=== PATIENT | female | born 1945 | race Caucasian/White ===

== ENCOUNTER 2019-07-06 18:01 | Emergency (ER) | payer OTHER, MEDICAID ==
[2019-07-06] MEDS ORDERED: NORMAL SALINE 1000 ML 1,000 ML IV ONE ×2 (18:25→20:51)
--- NOTE | 2019-07-06 18:30 | ER Document Report ---
ED Medical Screen (RME) - General Chief Complaint: High Blood Sugar Stated Complaint: HIGH BLOOD SUGAR Time Seen by Provider: 07/06/19 18:23 Primary Care Provider: FRANCISCO HUGHES MD [Primary Care Provider] - Follow up as needed Mode of Arrival: Ambulatory Information source: Patient Notes: 73-year-old female presented to ED for complaint of elevated blood sugar. She states that her blood sugars been over 400 most of the day today. She states she has not had any nausea and vomiting. She is a diabetic Hepatitis C, cirrhosis, and high blood pressure. She states she also uses Januvia for her diabetes but she is out of the second medications. She states she has not been to her doctor or to the emergency room in about a year. She states that she is taking 5 Metformin today because they are not working. She is not taking any of her other medications because she is out of them. 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 Cholecystectomy. I have greeted and performed a rapid initial assessment of this patient. A comprehensive ED assessment and evaluation of the patient, analysis of test results and completion of medical decision making process will be conducted by an additional ED providers. TRAVEL OUTSIDE OF THE [place] IN LAST 30 DAYS: No - Related Data Allergies/Adverse Reactions: albuterol [Albuterol] Allergy (Severe, Verified 09/26/15 08:22) Anaphylaxis albuterol sulfate [From Combivent] Allergy (Severe, Verified 09/26/15 08:22) Anaphylaxis budesonide [From Symbicort] Allergy (Severe, Verified 09/26/15 08:22) Anaphylaxis formoterol fumarate [From Symbicort] Allergy (Severe, Verified 09/26/15 08:22) Anaphylaxis ipratropium bromide [From Combivent] Allergy (Severe, Verified 09/26/15 08:22) Anaphylaxis milk [Milk] Allergy (Severe, Verified 08/26/15 10:02) sinuses Past Medical History - General Information source: Patient - Social History Cigarette use (# per day): No Frequency of alcohol use: None Drug Abuse: None Lives with: Family Family history: Reviewed & Not Pertinent - Past Medical History Cardiac Medical History: Reports: None Pulmonary Medical History: Reports: Hx Bronchitis - hx of, Hx COPD - no inhalers-allergic Neurological Medical History: Reports: None Endocrine Medical History: Reports: Hx Diabetes Mellitus Type 2 Renal/ Medical History: Reports: Other - Crystallized right kidney Malignancy Medical History: Reports: None GI Medical History: Reports: Hx Cirrhosis, Hx Gastroesophageal Reflux Disease, Hx Hepatitis - c, Hx Liver Failure - cirrhosis,viral hep c, Other - Incisional hernia from a horse Musculoskeltal Medical History: Reports Hx Arthritis, Reports Hx Musculoskeletal Deformity, Reports Hx Musculoskeletal Trauma Skin Medical History: Reports None Psychiatric Medical History: Reports: None Traumatic Medical History: Reports: Hx Fractures - pelvis x 2 Infectious Medical History: Reports: Hx Hepatitis - c Past Surgical History: Reports: Hx Abdominal Surgery - POLYPS, Hx Appendectomy, Hx Section - x 2, Hx Cholecystectomy, Hx Herniorrhaphy, Hx Kidney (Renal Surgery) - NEPHRECTOMY right, Hx Orthopedic Surgery - BROKEN PELVIS, Hx Tonsillectomy. Denies: Hx Bowel Surgery, Hx Colostomy, Hx Coronary Artery Bypass Graft, Hx Gastric Bypass Surgery, Hx Hysterectomy, Hx Mastectomy, Hx Pacemaker, Hx Tubal Ligation - Immunizations Hx Diphtheria, Pertussis, Tetanus Vaccination: - Unknown Physical Exam - Vital signs Vitals: Temp Pulse BP Pulse Ox 97.4 F 84 155/71 H 99 07/06/19 18:04 07/06/19 18:04 07/06/19 18:04 07/06/19 18:04 Course - Vital Signs Vital signs: Temp Pulse Resp BP Pulse Ox 97.4 F 84 155/71 H 99 07/06/19 18:04 07/06/19 18:04 07/06/19 18:04 07/06/19 18:04 Doctor's Discharge - Discharge Referrals: FRANCISCO HUGHES MD [Primary Care Provider] - Follow up as needed
[2019-07-06 19:09] LABS: VENOUS BLOOD BASE EXCESS 0.5 mmol/L; VENOUS BLOOD HCO3 26.1 mmol/L (20-32); VENOUS BLOOD PCO2 45.6 mmHg (35-63); VENOUS BLOOD PH 7.38 (7.30-7.42)
[2019-07-06 19:11] LABS: ABSOLUTE EOSINOPHILS # (AUTO) 0.1 10^3/uL (0.0-0.6); ABSOLUTE LYMPHOCYTES (AUTO) 0.6 10^3/uL (0.5-4.7); ABSOLUTE MONOCYTES (AUTO) 0.2 10^3/uL (0.1-1.4); ABSOLUTE NEUT (AUTO) 2.1 10^3/uL (1.7-8.2); BASOPHILS % (AUTO) 0.4 % (0-2); EOSINOPHILS % (AUTO) 2.3 % (0-6); HEMATOCRIT 40.1 % (36.0-47.0); HEMOGLOBIN 13.3 g/dL (12.0-15.5); LYMPHOCYTES % (AUTO) 20.3 % (13-45); MEAN CORPUSCULAR HEMOGLOBIN 28.8 pg (27.0-33.4); MEAN CORPUSCULAR VOLUME 87 fl (80-97); MONOCYTES % (AUTO) 7.1 % (3-13); RED CELL DISTRIBUTION WIDTH 18.7 % (11.5-14.0); SEGMENTED NEUTROPHILS % (AUTO) 69.9 % (42-78); TOTAL CELLS COUNTED % (AUTO) 100 %
[2019-07-06 19:28] LABS: ALBUMIN 3.6 g/dL (3.5-5.0); ALKALINE PHOSPHATASE 164 U/L (38-126); ANION GAP 11 (5-19); ASPARTATE AMINO TRANSFERASE 38 U/L (14-36); BILIRUBIN,DIRECT 0.3 mg/dL (0.0-0.4); BILIRUBIN,TOTAL 1.6 mg/dL (0.2-1.3); BLOOD UREA NITROGEN 14 mg/dL (7-20); CALCIUM 9.5 mg/dL (8.4-10.2); CARBON DIOXIDE 27 mmol/L (22-30); CHLORIDE 99 mmol/L (98-107); POTASSIUM 4.2 mmol/L (3.6-5.0); TOTAL PROTEIN 7.3 g/dL (6.3-8.2)
[2019-07-06 19:36] LABS: GLUCOSE 423 mg/dL (75-110)
[2019-07-06 19:43] LABS: PLATELET COUNT 46 10^3/uL (150-450)
--- NOTE | 2019-07-06 20:38 | ER Document Report ---
ED General - General Chief Complaint: High Blood Sugar Stated Complaint: HIGH BLOOD SUGAR Time Seen by Provider: 07/06/19 18:23 Primary Care Provider: FRANCISCO HUGHES MD [ACTIVE STAFF] - Follow up as needed Mode of Arrival: Ambulatory Notes: Patient is a 73-year-old female with a history of type 2 diabetes, hepatitis C, cirrhosis and hypertension who presents to the emergency department with a chief complaint of elevated blood sugar. Patient reports that she has been out of her Januvia for about 2 months. She reports that Dr. Hughes was prescribing her diabetes medications but that she did not feel comfortable going back to him. Patient reports she does take metformin 1000 mg twice a day. Patient denies symptoms such as nausea, vomiting or diarrhea. Patient denies urinary symptoms. Patient reports her blood sugar has been elevated in the 400s for many months. Patient reports tonight it did go above 500 and which her significant other was worried and told her to go to the emergency department. Patient states that she did have a right kidney removed 10 years ago because it was crystallized and not working. TRAVEL OUTSIDE OF THE [place] IN LAST 30 DAYS: No - Related Data Allergies/Adverse Reactions: albuterol [Albuterol] Allergy (Severe, Verified 07/06/19 18:27) Anaphylaxis albuterol sulfate [From Combivent] Allergy (Severe, Verified 07/06/19 18:27) Anaphylaxis budesonide [From Symbicort] Allergy (Severe, Verified 07/06/19 18:27) Anaphylaxis formoterol fumarate [From Symbicort] Allergy (Severe, Verified 07/06/19 18:27) Anaphylaxis ipratropium bromide [From Combivent] Allergy (Severe, Verified 07/06/19 18:27) Anaphylaxis milk [Milk] Allergy (Severe, Verified 07/06/19 18:27) sinuses Home Medications: metformin, out of all over meds Past Medical History - General Information source: Patient - Social History Smoking Status: Former Smoker Cigarette use (# per day): No Chew tobacco use (# tins/day): No Frequency of alcohol use: None Drug Abuse: None Lives with: Family Family History: Reviewed & Not Pertinent Patient has suicidal ideation: No Patient has homicidal ideation: No - Past Medical History Cardiac Medical History: Reports: None, Hx Peripheral Vascular Disease - per pt Denies: Hx Atrial Fibrillation, Hx Congestive Heart Failure, Hx Coronary Artery Disease, Hx Heart Attack, Hx Hypercholesterolemia, Hx Hypertension - ??, Hx Pulmonary Embolism, Hx Heart Murmur Pulmonary Medical History: Reports: Hx Bronchitis - hx of, Hx COPD - no inhalers-allergic Denies: Hx Asthma, Hx Pneumonia, Hx Respiratory Failure, Hx Sleep Apnea, Hx Tuberculosis EENT Medical History: Reports: None Neurological Medical History: Reports: None. Denies: Hx Cerebrovascular Accident, Hx Seizures, Hx Parkinson's Disease Endocrine Medical History: Reports: Hx Diabetes Mellitus Type 2. Denies: Hx Graves' Disease, Hx Hyperthyroidism, Hx Hypothyroidism Renal/ Medical History: Reports: Other - Crystallized right kidney. Denies: Hx End Stage Renal Disease, Hx Kidney Stones, Hx Peritoneal Dialysis Malignancy Medical History: Reports: None. Denies: Hx Leukemia, Hx Lung Cancer GI Medical History: Reports: Hx Cirrhosis, Hx Gastroesophageal Reflux Disease, Hx Hepatitis - c, Hx Hiatal Hernia - incisional, Hx Liver Failure - cirrhosis,viral hep c, Other - Incisional hernia from a horse. Denies: Hx Crohn's Disease, Hx Irritable Bowel, Hx Pancreatitis, Hx Ulcer Musculoskeletal Medical History: Reports Hx Arthritis, Denies Hx Fibromyalgia, Denies Hx Multiple Sclerosis, Denies Hx Muscular Dystrophy, Reports Hx Musculosk eletal Deformity, Reports Hx Musculoskeletal Trauma, Denies Hx Systemic Lupus Erythematosus Skin Medical History: Reports None Psychiatric Medical History: Reports: None Denies: Hx Dementia Traumatic Medical History: Reports: Hx Fractures - pelvis x 2 Infectious Medical History: Reports: Hx Hepatitis - c. Denies: Hx HIV Past Surgical History: Reports: Hx Abdominal Surgery - POLYPS, Hx Appendectomy, Hx Section - x 2, Hx Cholecystectomy, Hx Herniorrhaphy, Hx Kidney (Renal Surgery) - NEPHRECTOMY right, Hx Orthopedic Surgery - BROKEN PELVIS, Hx Tonsillectomy. Denies: Hx Bowel Surgery, Hx Colostomy, Hx Coronary Artery Bypass Graft, Hx Gastric Bypass Surgery, Hx Hysterectomy, Hx Mastectomy, Hx Pacemaker, Hx Tubal Ligation - Immunizations Hx Diphtheria, Pertussis, Tetanus Vaccination: - Unknown Review of Systems - Review of Systems Constitutional: No symptoms reported EENT: No symptoms reported Cardiovascular: No symptoms reported Respiratory: No symptoms reported Gastrointestinal: No symptoms reported Genitourinary: No symptoms reported Female Genitourinary: No symptoms reported Musculoskeletal: No symptoms reported Skin: No symptoms reported Hematologic/Lymphatic: No symptoms reported Neurological/Psychological: No symptoms reported Physical Exam - Vital signs Vitals: Temp Pulse BP Pulse Ox 97.4 F 84 155/71 H 99 07/06/19 18:04 07/06/19 18:04 07/06/19 18:04 07/06/19 18:04 - Notes Notes: GENERAL: Well-appearing, well-nourished and in no acute distress. Obese individual. HEAD: Atraumatic, normocephalic. EYES: Pupils equal round and reactive to light, extraocular movements intact, sclera anicteric, conjunctiva are normal. ENT: Nares patent, oropharynx clear without exudates. Moist mucous membranes. NECK: Normal range of motion, supple without lymphadenopathy or JVD. LUNGS: Breath sounds clear to auscultation bilaterally and equal. No wheezes rales or rhonchi. HEART: Regular rate and rhythm without murmurs, rubs or gallops. ABDOMEN: Soft, round, obese, nontender, normoactive bowel sounds. No guarding, no rebound. No masses appreciated. BACK: No cervical, thoracic, lumbar midline tenderness. No saddle anesthesia, normal distal neurovascular exam. GENITOURINARY: Deferred. EXTREMITIES: Normal range of motion, no pitting or edema. No clubbing or cyanosis. NEUROLOGICAL: Cranial nerves II through XII grossly intact. Normal speech, normal gait. PSYCH: Normal mood, normal affect. SKIN: Warm, Dry, normal turgor, no rashes or lesions noted. Course - Re-evaluation Re-evalutation: 07/06/19 20:36 Patient's blood sugar was noted to be in the 400s here in the emergency department. Patient did receive 1 L of fluid. We will recheck her blood glucose. Patient is not acidotic and her other laboratory findings were benign. Patient is nontoxic-appearing. Patient reports she has been out of her Januvia for many months. Patient reports she is still currently taking her metformin 1000 mg twice a day. Patient reports she does not have a primary care physician at this time. 07/06/19 21:11 Patient's platelet count is low. Patient does have a thrombocytopenia. After reviewing the patient's previous visit from 2014 in 2016 this appears to be chronic. I did discuss this with the patient and informed her she does need to follow-up with Dr. Hughes for her follow-up 07/06/19 21:22 I did review the patient's med list and did clarify the dosages with her. Patient reports she does take Januvia 50 mg daily but has been out for a few months. Patient reports she also has been out of her glimepiride 2 mg daily. I will prescribe her a 30-day course of this. Patient states that while she was on these 2 medications in combination with the metformin her blood sugar ran in the low 100s. Patient reports she did tolerate these 3 medications well. Ultimately I told the patient she does need to follow-up with her primary care physician. She reports that her insurance company is supposed to sign her primary care physician within the next few weeks. 07/06/19 22:12 Patient's repeat blood glucose is 325 after receiving her second liter of fluid. Patient is nontoxic-appearing and stable for discharge. Patient reports she has been running in the high 400s over the past few months. Patient given medication refills for 30 days. Patient given strict return precautions. - Vital Signs Vital signs: Temp Pulse Resp BP Pulse Ox 97.4 F 84 12 139/67 H 99 07/06/19 18:04 07/06/19 18:04 07/06/19 21:31 07/06/19 21:31 07/06/19 21:31 - Laboratory Result Diagrams: 07/06/19 18:47 07/06/19 18:47 Laboratory results interpreted by me: 07/06/19 07/06/19 07/06/19 18:46 18:47 18:47 WBC 3.0 L RDW 18.7 H Plt Count 46 L Sodium 136.7 L Glucose 423 H* POC Glucose 421 H* Total Bilirubin 1.6 H AST 38 H Alkaline Phosphatase 164 H 07/06/19 07/06/19 20:41 22:05 WBC RDW Plt Count Sodium Glucose POC Glucose 330 H 325 H Total Bilirubin AST Alkaline Phosphatase 07/06/19 20:37 Blood glucose 423. Patient is not acidotic. No alteration in kidney function. Platelet count is low at 46. Discharge - Discharge Clinical Impression: Thrombocytopenia Cirrhosis Qualifiers: Hepatic cirrhosis type: unspecified hepatic cirrhosis Ascites presence: without ascites Qualified Code(s): K74.60 - Unspecified cirrhosis of liver Hepatitis C Qualifiers: Viral hepatitis chronicity: unspecified Hepatic coma status: without hepatic coma Qualified Code(s): B19.20 - Unspecified viral hepatitis C without hepatic coma HTN (hypertension) Qualifiers: Hypertension type: essential hypertension Qualified Code(s): I10 - Essential (primary) hypertension Diabetes mellitus Qualifiers: Diabetes mellitus type: type 2 Diabetes mellitus fpc insulin use: without long term care social worker use Diabetes mellitus complication status: with hyperglycemia Qualified Code(s): E11.65 - Type 2 diabetes mellitus with hyperglycemia Condition: Stable Disposition: HOME, SELF-CARE Additional Instructions: *Today you are seen in the emergency department for elevated blood sugar. After receiving IV fluids your blood sugar has significantly improved. I am going to prescribe you a one-month course of Januvia and glimepiride. Ultimately you do need to establish a primary care physician if you do not want to return to Dr. Hughes. Please take your medications as prescribed. *Was also found that you have a low platelet count. This does appear to be chronic as you did have a low platelet count back in 2015. Please have your primary care physician follow-up and recheck at this level. This could be due to your cirrhosis and hepatitis C. Diabetes You have an abnormally high blood sugar, suspicious for diabetes. Not all high blood sugar requires long-term treatment. High blood sugar can be due to medications, , or the stress of illness. (These cases are "borderline diabetes.") If the doctor feels your high blood sugar might get better with time, you may not require treatment now. You will be scheduled for further evaluation. It's very important that you follow through. Uncontrolled high blood sugar leads to early heart disease, strokes, nerve damage, eye damage, and kidney damage. All diabetics should follow a diet designed to control the blood sugar. Overweight diabetics should exercise regularly and lose weight. If this is not sufficient to control the blood sugar, pills or insulin shots are necessary. Younger people who develop diabetes almost always require insulin daily. Home testing of blood sugars or urine sugar is required. Diabetic teaching is available to help you figure insulin doses and monitor the blood sugar. Call the physician if there is faintness, excess sleepiness, or very rapid breathing. If hypoglycemia (LOW blood sugar) develops, symptoms are shakiness, weakness, sweating, and confusion. In this case, you should eat or drink so mething with sugar at once. Thrombocytopenia Your blood test shows that your platelet count is low. This is called thrombocytopenia. Platelets are small disk-shaped objects in your blood that help to stop bleeding. If the number of platelets in the blood is too low, you can bruise easily or even develop serious internal bleeding. Based on today's platelet count, you do not need to be admitted to the hospital. Low platelets can be caused by immune reactions, abnormality of the spleen, infections, drug reactions, chemotherapy, leukemia, or vitamin deficiency. Usually, the problem is only temporary -- the platelet count increases again with time. If the cause of your thrombocytopenia is not known, further testing will be necessary. Extreme thrombocytopenia can cause life-threatening bleeding. You should avoid sports or other activities that risk injury. Do not undergo dental work or non-emergency surgery at this time. Eat a good diet, and include a multi-vit farias. Avoid alcohol. DO NOT take any aspirin. It's also best to avoid non- steroid antiinflammatory medicines such as ibuprofen or naproxen. The treatment of thrombocytopenia depends on the cause. If your immune system is attacking platelets, you'll be treated with steroids (cortisone). If dangerous bleeding develops, you may require a platelet transfusion. Call the doctor or return if you have severe headache, chest or abdominal pain, bloody vomiting, black or bloody stools, dizziness, or neurological symptoms. Prescriptions: Glimepiride 2 mg PO DAILY #30 tablet Sitagliptin Phosphate [Januvia 50 mg Tablet] 50 mg PO DAILY #30 tablet Referrals: FRANCISCO HUGHES MD [ACTIVE STAFF] - Follow up as needed
[2019-07-06 22:21] VITALS: BP 141/78
== END 2019-07-06 22:21 | disposition home or self-care (01) ==
LOC: ER 18:01
DX: D69.6 Thrombocytopenia, unspecified (principal); K74.60 Unspecified cirrhosis of liver; B19.20 Unspecified viral hepatitis C without hepatic coma; E11.65 Type 2 diabetes mellitus with hyperglycemia; I10 Essential (primary) hypertension; Z79.84 Long term (current) use of oral hypoglycemic drugs; Z87.891 Personal history of nicotine dependence; J44.9 Chronic obstructive pulmonary disease, unspecified
CPT/HCPCS: 99284; 96360; 36415; 82962; 85025; 80053; 82803; J7030

== ENCOUNTER 2019-12-25 15:50 | Emergency (ER) | payer MEDICARE, MEDICAID ==
[2019-12-25 17:08] LABS: ABSOLUTE EOSINOPHILS # (AUTO) 0.1 10^3/uL (0.0-0.6); ABSOLUTE LYMPHOCYTES (AUTO) 0.6 10^3/uL (0.5-4.7); ABSOLUTE MONOCYTES (AUTO) 0.3 10^3/uL (0.1-1.4); ABSOLUTE NEUT (AUTO) 2.1 10^3/uL (1.7-8.2); BASOPHILS % (AUTO) 0.4 % (0-2); EOSINOPHILS % (AUTO) 3.6 % (0-6); HEMATOCRIT 34.9 % (36.0-47.0); HEMOGLOBIN 11.9 g/dL (12.0-15.5); LYMPHOCYTES % (AUTO) 17.9 % (13-45); MEAN CORPUSCULAR HEMOGLOBIN 32.1 pg (27.0-33.4); MEAN CORPUSCULAR HGB CONC 34.2 g/dL (32.0-36.0); MEAN CORPUSCULAR VOLUME 94 fl (80-97); MONOCYTES % (AUTO) 8.9 % (3-13); PLATELET COUNT 104 10^3/uL (150-450); RED BLOOD COUNT 3.72 10^6/uL (3.72-5.28); RED CELL DISTRIBUTION WIDTH 15.2 % (11.5-14.0); SEGMENTED NEUTROPHILS % (AUTO) 69.2 % (42-78); TOTAL CELLS COUNTED % (AUTO) 100 %; WHITE BLOOD COUNT 3.1 10^3/uL (4.0-10.5)
--- NOTE | 2019-12-25 17:19 | ER Document Report ---
ED General - General Information source: Patient, Relative, [facility] Records TRAVEL OUTSIDE OF THE [place] IN LAST 30 DAYS: No - HPI Onset: Last week Onset/Duration: Gradual, Persistent Quality of pain: No pain Severity: None Pain Level: Denies Associated symptoms: Diarrhea, Slow to respond Exacerbated by: Denies Relieved by: Denies Similar symptoms previously: Yes Recently seen / treated by doctor: No <ALEJANDRO WOODS - Last Filed: 12/25/19 18:37> <SALVATORE BLACKWOOD - Last Filed: 12/25/19 22:46> - General Stated Complaint: BLOOD SUGAR Notes: Patient is a 74-year-old female presenting to the emergency department chief complaint of elevated blood glucose level. After speaking with the patient she states that she has had elevated blood sugar in the past up to 600 at sometimes. 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 At time of presentation patient seems a little confused giving 1 explanation to nursing staff and a different one to me. Nurses were able to get a hold of the patient's son he states that his mother has had difficulties obtaining her glucose testing materials as well as is noncompliant as well as tends to drink sugary drinks. (ALEJANDRO WOODS) - Related Data Allergies/Adverse Reactions: albuterol [Albuterol] Allergy (Severe, Verified 07/06/19 18:27) Anaphylaxis albuterol sulfate [From Combivent] Allergy (Severe, Verified 07/06/19 18:27) Anaphylaxis budesonide [From Symbicort] Allergy (Severe, Verified 07/06/19 18:27) Anaphylaxis formoterol fumarate [From Symbicort] Allergy (Severe, Verified 07/06/19 18:27) Anaphylaxis ipratropium bromide [From Combivent] Allergy (Severe, Verified 07/06/19 18:27) Anaphylaxis milk [Milk] Allergy (Severe, Verified 07/06/19 18:27) sinuses Past Medical History - General Information source: Patient, Relative, [facility] Records - Social History Smoking Status: Unknown if Ever Smoked Chew tobacco use (# tins/day): No Frequency of alcohol use: None Drug Abuse: None Lives with: Family Family History: Reviewed & Not Pertinent Patient has suicidal ideation: No Patient has homicidal ideation: No - Past Medical History Cardiac Medical History: Reports: Hx Peripheral Vascular Disease - per pt Denies: Hx Atrial Fibrillation, Hx Congestive Heart Failure, Hx Coronary Artery Disease, Hx Heart Attack, Hx Hypercholesterolemia, Hx Hypertension - ??, Hx Pulmonary Embolism, Hx Heart Murmur Pulmonary Medical History: Reports: Hx Bronchitis - hx of, Hx COPD - no inhalers-allergic Denies: Hx Asthma, Hx Pneumonia, Hx Respiratory Failure, Hx Sleep Apnea, Hx Tuberculosis Neurological Medical History: Denies: Hx Cerebrovascular Accident, Hx Seizures, Hx Parkinson's Disease Endocrine Medical History: Reports: Hx Diabetes Mellitus Type 2. Denies: Hx Graves' Disease, Hx Hyperthyroidism, Hx Hypothyroidism Renal/ Medical History: Denies: Hx End Stage Renal Disease, Hx Kidney Stones, Hx Peritoneal Dialysis Malignancy Medical History: Denies: Hx Leukemia, Hx Lung Cancer GI Medical History: Reports: Hx Cirrhosis, Hx Gastroesophageal Reflux Disease, Hx Hepatitis - c, Hx Hiatal Hernia - incisional, Hx Liver Failure - cirrhosis,viral hep c. Denies: Hx Crohn's Disease, Hx Irritable Bowel, Hx Pancreatitis, Hx Ulcer Musculoskeletal Medical History: Reports Hx Arthritis, Denies Hx Fibromyalgia, Denies Hx Multiple Sclerosis, Denies Hx Muscular Dystrophy, Reports Hx Musculoskeletal Deformity, Reports Hx Musculoskeletal Trauma, Denies Hx Systemic Lupus Erythematosus Psychiatric Medical History: Denies: Hx Dementia Traumatic Medical History: Reports: Hx Fractures - pelvis x 2 Infectious Medical History: Reports: Hx Hepatitis - c. Denies: Hx HIV Past Surgical History: Reports: Hx Abdominal Surgery - POLYPS, Hx Appendectomy, Hx Section - x 2, Hx Cholecystectomy, Hx Herniorrhaphy, Hx Kidney (Renal Surgery) - NEPHRECTOMY right, Hx Orthopedic Surgery - BROKEN PELVIS, Hx Tonsillectomy. Denies: Hx Bowel Surgery, Hx Colostomy, Hx Coronary Artery Bypass Graft, Hx Gastric Bypass Surgery, Hx Hysterectomy, Hx Mastectomy, Hx Pacemaker, Hx Tubal Ligation - Immunizations Hx Diphtheria, Pertussis, Tetanus Vaccination: - Unknown <ALEJANDRO WOODS - Last Filed: 12/25/19 18:37> Review of Systems <ALEJANDRO WOODS - Last Filed: 12/25/19 18:37> - Review of Systems Notes: REVIEW OF SYSTEMS: CONSTITUTIONAL : Denies fever, chills, or sweats. Denies recent illness. EENT: Denies eye, ear, throat, or mouth pain or symptoms. Denies nasal or sinus congestion. CARDIOVASCULAR: Denies chest pain. RESPIRATORY: Intermittent cough GASTROINTESTINAL: Denies abdominal pain. Denies nausea, vomiting, or diarrhea. Denies constipation. GENITOURINARY: Denies difficulty urinating, painful urination, burning, frequency, or blood in urine. MUSCULOSKELETAL: Swelling to bilateral lower extremities with erythema SKIN: Denies rash or skin lesions. HEMATOLOGIC : Denies easy bruising or bleeding. NEUROLOGICAL: Denies altered mental status or loss of consciousness. Denies headache. Denies weakness or paralysis or loss of use of either side. Denies problems with gait or speech. Denies sensory or motor loss. PSYCHIATRIC: Denies suicidal or homicidal ideations 10 Systems are negative unless otherwise specified above (ALEJANDRO WOODS) Physical Exam <ALEJANDRO WOODS - Last Filed: 12/25/19 18:37> - Vital signs Vitals: Temp Pulse Resp BP Pulse Ox 98.6 F 93 20 134/74 H 96 12/25/19 16:23 12/25/19 16:23 12/25/19 16:23 12/25/19 16:23 12/25/19 16:23 - Notes Notes: PHYSICAL EXAMINATION: GENERAL: Patient is a pleasant 74-year-old female presenting to the emergency department chief complaint of elevated blood glucose at home. HEAD: Atraumatic, normocephalic. EYES: Pupils equal round and reactive to light, extraocular movements intact, sclera anicteric, conjunctiva are normal. ENT: nares patent, oropharynx clear without exudates. Tachy mucous membranes. NECK: Normal range of motion, supple without lymphadenopathy, no appreciable JVD LUNGS: Lungs clear to auscultation bilaterally and equal. No wheezes rales or rhonchi. However deep inspiration does cause a cough response HEART: Regular rate and rhythm without murmurs ABDOMEN: Soft, nontender, normal bowel sounds. No guarding, no rebound. No masses appreciated. EXTREMITIES: Active full range of motion. No cyanosis. 2+ pulses x4 bilateral swelling and erythema to the lower calves. NEUROLOGICAL: No focal neurological deficits. Patient does seem somewhat confused but is otherwise alert and oriented Michelle Coma Scale of 15. Moves all extremities spontaneously and on command. SKIN: Warm, Dry, and intact. Normal turgor, no rashes or lesions noted. (ALEJANDRO WOODS) Course - Laboratory Result Diagrams: 12/25/19 16:50 12/25/19 16:50 - Diagnostic Test Radiology reviewed: Reports reviewed - EKG Interpretation by Me EKG shows normal: Sinus rhythm Rate: Normal Rhythm: NSR When compared to previous EKG there are: Changes noted - EKG demonstrates sinus rhythm rate of 93 bpm <ALEJANDRO WOODS - Last Filed: 12/25/19 18:37> - Laboratory Result Diagrams: 12/25/19 16:50 12/25/19 16:50 - Diagnostic Test Radiology reviewed: Image reviewed, Reports reviewed <SALVATORE BLACKWOOD - Last Filed: 12/25/19 22:46> - Re-evaluation Re-evalutation: 12/25/19 18:43 Patient will be signed out to oncoming physician for final disposition and review of final lab and radiologic studies. (ALEJANDRO WOODS) 12/25/19 22:44 The patient was signed out to me at shift change. The patient has poorly controlled DM with a blood sugar in the 400s and an Hemoglobin A1C of 9.8. Patient was treated with fluids and insulin in the ER until her blood sugar came down. Patient also noted to have a UTI. She was given a dose of Rocephin for this and she was DCed with a course of Keflex. Patient told she needs to follow up with her PCP for follow up and for better glycemic control. I attempted to call her and son without success so I left a voicemail. 12/25/19 22:45 (SALVATORE BLACWKOOD) - Vital Signs Vital signs: Temp Pulse Resp BP Pulse Ox 98.1 F 83 20 132/60 H 98 12/25/19 22:16 12/25/19 22:16 12/25/19 16:23 12/25/19 22:16 12/25/19 22:16 - Laboratory Laboratory results interpreted by me: 12/25/19 12/25/19 12/25/19 16:50 16:50 16:50 WBC 3.1 L Hgb 11.9 L Hct 34.9 L RDW 15.2 H Plt Count 104 L Sodium 134.5 L Glucose 448 H* POC Glucose Hemoglobin A1c % 9.8 H Calcium 8.2 L Total Bilirubin 2.3 H AST 53 H Alkaline Phosphatase 162 H Albumin 3.0 L Urine Glucose (UA) Urine Blood Urine Nitrite Urine Urobilinogen Ur Leukocyte Esterase 12/25/19 12/25/19 12/25/19 17:06 18:26 20:35 WBC Hgb Hct RDW Plt Count Sodium Glucose POC Glucose 425 H* 365 H Hemoglobin A1c % Calcium Total Bilirubin AST Alkaline Phosphatase Albumin Urine Glucose (UA) >=500 H Urine Blood SMALL H Urine Nitrite POSITIVE H Urine Urobilinogen 2.0 H Ur Leukocyte Esterase TRACE H 12/25/19 21:40 WBC Hgb Hct RDW Plt Count Sodium Glucose POC Glucose 339 H Hemoglobin A1c % Calcium Total Bilirubin AST Alkaline Phosphatase Albumin Urine Glucose (UA) Urine Blood Urine Nitrite Urine Urobilinogen Ur Leukocyte Esterase Discharge <CHUCK,ALEJANDRO - Last Filed: 12/25/19 18:37> <SALVATORE BLACKWOOD - Last Filed: 12/25/19 22:46> - Discharge Clinical Impression: Medical non-compliance Hyperglycemia due to type 2 diabetes mellitus Qualifiers: Diabetes mellitus custodial insulin use: unspecified 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 Qualified Code(s): E11.65 - Type 2 diabetes mellitus with hyperglycemia Diabetes mellitus Qualifiers: Diabetes mellitus type: other specified (including MARY GRACE) Diabetes mellitus custodial insulin use: unspecified custodial insulin use status Diabetes mellitus complication status: without complication Qualified Code(s): E13.9 - Other specified diabetes mellitus without complications UTI (urinary tract infection) Qualifiers: Urinary tract infection type: site unspecified Hematuria presence: without hematuria Qualified Code(s): N39.0 - Urinary tract infection, site not specified Condition: Stable Disposition: HOME, SELF-CARE Instructions: Urinary Tract Infection ([facility]), Hyperglycemia ([facility]) Additional Instructions: You have very poorly controlled Diabetes. Your hemoglobin A1C was 9.8 in the ER today and your blood sugars were in the 400s. You were treated with fluids, insulin, and antibiotics in the ER. Follow up with your primary care doctor as soon as possible. Take the prescribed antibiotics (Keflex) for your UTI. Prescriptions: Cephalexin Monohydrate [Keflex 500 mg Capsule] 500 mg PO BID 7 Days #14 capsule
[2019-12-25 17:25] LABS: ALKALINE PHOSPHATASE 162 U/L (38-126); ANION GAP 7 (5-19); ASPARTATE AMINO TRANSFERASE 53 U/L (14-36); BILIRUBIN,DIRECT 0.4 mg/dL (0.0-0.4); BILIRUBIN,TOTAL 2.3 mg/dL (0.2-1.3); BLOOD UREA NITROGEN 7 mg/dL (7-20); CALCIUM 8.2 mg/dL (8.4-10.2); CARBON DIOXIDE 26 mmol/L (22-30); CHLORIDE 102 mmol/L (98-107)
[2019-12-25 17:32] LABS: GLUCOSE 448 mg/dL (75-110)
[2019-12-25] MEDS ORDERED: NORMAL SALINE 1000 ML 1,000 ML IV ONE ×2 (18:08→18:36)
[2019-12-25] MEDS ORDERED: INSULIN REG, HUMAN 100 UNIT/ML 3 ML VIAL (PYX) SUBCUT ONE ×3 (18:35→22:19)
--- NOTE | 2019-12-25 18:37 | RADIOLOGY REPORT (SQ) ---
EXAM DESCRIPTION: CHEST SINGLE VIEW IMAGES COMPLETED DATE/TIME: 12/25/2019 6:29 pm REASON FOR STUDY: cough COMPARISON: 11/19/2015 EXAM PARAMETERS: NUMBER OF VIEWS: One view. TECHNIQUE: Single frontal radiographic view of the chest acquired. RADIATION DOSE: NA LIMITATIONS: None. FINDINGS: LUNGS AND PLEURA: No opacities, masses or pneumothorax. No pleural effusion. MEDIASTINUM AND HILAR STRUCTURES: No masses. Contour normal. HEART AND VASCULAR STRUCTURES: Cardiomegaly. No pulmonary edema. BONES: No acute findings. HARDWARE: None in the chest. OTHER: No other significant finding. IMPRESSION: Cardiomegaly without pulmonary edema. TECHNICAL DOCUMENTATION: JOB ID: [id number] 2010 [employer]- All Rights Reserved Reading location - IP/workstation name: [email or web address]
[2019-12-25 18:42] LABS: APPEARANCE,URINE CLEAR; BILIRUBIN,URINE NEGATIVE (NEGATIVE); COLOR,URINE YELLOW; GLUCOSE, URINE >=500 mg/dL (NEGATIVE); KETONES,URINE NEGATIVE (NEGATIVE); LEUKOCYTE ESTERASE,URINE TRACE (NEGATIVE); NITRITE,URINE POSITIVE (NEGATIVE); PROTEIN,URINE NEGATIVE (NEGATIVE)
--- NOTE | 2019-12-25 19:04 | RADIOLOGY REPORT (SQ) ---
EXAM DESCRIPTION: CT HEAD WITHOUT IMAGES COMPLETED DATE/TIME: 12/25/2019 6:55 pm REASON FOR STUDY: confusion COMPARISON: None. TECHNIQUE: Axial images acquired through the brain without intravenous contrast. Images reviewed wi th bone, brain and subdural windows. Additional sagittal and coronal reconstructions were generated. Images stored on PACS. All CT scanners at this facility use dose modulation, iterative reconstruction, and/or weight based d osing when appropriate to reduce radiation dose to as low as reasonably achievable (ALARA). [facility]: Dose Right [facility]: CareDose [facility]: Dose Right [facility]: Teradose 4D [facility]: 3d [employer] Systems RADIATION DOSE: CT Rad equipment meets quality standard of care and radiation dose reduction techniq ues were employed. CTDIvol: 53.2 mGy. DLP: 937 mGy-cm. mGy. LIMITATIONS: None. FINDINGS: VENTRICLES: Normal size and contour. CEREBRUM: No masses. No hemorrhage. No midline shift. No evidence for acute infarction. Normal gra y/white matter differentiation. No areas of low density in the white matter. CEREBELLUM: No masses. No hemorrhage. No alteration of density. No evidence for acute infarction. EXTRAAXIAL SPACES: No fluid collections. No masses. ORBITS AND GLOBE: No intra- or extraconal masses. Normal contour of globe without masses. CALVARIUM: No fracture. PARANASAL SINUSES: No fluid or mucosal thickening. SOFT TISSUES: No mass or hematoma. OTHER: No other significant finding. IMPRESSION: NORMAL BRAIN CT WITHOUT CONTRAST. EVIDENCE OF ACUTE STROKE: NO. COMMENT: Quality ID # [id number]: Final reports with documentation of one or more dose reduction techniques (e.g., Automated exposure control, adjustment of the mA and/or kV according to patient size, use of iterative reconstruction technique) TECHNICAL DOCUMENTATION: JOB ID: [id number] 2010 [employer]- All Rights Reserved Reading location - IP/workstation name: [email or web address]
[2019-12-25] MEDS ORDERED: CEFTRIAXONE 1 GM/D5W RTU 1 GM/50 ML RTUPB IV ONE (19:16)
--- NOTE | 2019-12-25 23:42 | EKG REPORT ---
SEVERITY:- BORDERLINE ECG - SINUS RHYTHM BORDERLINE PROLONGED QT INTERVAL : Confirmed by: Emilie Cuellar MD 25-Dec-2019 23:41:19
[2019-12-26 00:14] VITALS: BP 131/70
== END 2019-12-26 00:21 | disposition home or self-care (01) ==
LOC: ER 15:50
DX: N39.0 Urinary tract infection, site not specified (principal); E11.65 Type 2 diabetes mellitus with hyperglycemia; Z91.14 Patient's other noncompliance with medication regimen; Z88.8 Allergy status to other drugs, medicaments and biological substances; J44.9 Chronic obstructive pulmonary disease, unspecified
CPT/HCPCS: 93005; 99285; 96361; 96365; 36415; 87086; 82010; 82962; 85025; 87088; 80053; 81001; 83036; 83880; 71045; 70450; 93010; A9270; J7030; J0696; 87186; J1815